=== PATIENT | female | born 1975 | race Asian ===

== ENCOUNTER → 2017-06-08 | Day surgery (SDC) | payer OTHER ==
[~2017-06-08] VITALS: Ht 156.2 cm; Wt 43.5 kg
[~2017-06-08] MED LIST: BUPIVACAINE HCL PF 0.25% 30 ML VIAL ONE; CEPH-459 PO; CHLORHEXIDINE GLUCONATE 2 % 1 PACK (2 CLOTHS) TOPICAL PRN; HYDR-3288 PO; LACTATED RINGER'S 1000 ML INJ 1,000 ML ONE; LACTATED RINGER'S 1000 ML IV PRN; LIDOCAINE HCL 2% 50 ML VIAL ONE; METOPROLOL TARTRATE 25 MG TAB PO PRN; NEOMYCIN/POLYMYXIN 1 ML G.U. IRRIGANT ONE; POVIDONE IODINE 5% (ANTISEPSIS KIT) 4 APPLICATIONS EACH NARE PRN; SODIUM CHLORID 0.9% 500 ML IV PRN; SODIUM CHLORIDE 0.9% INJ 100 ML ONE; Z.0.NO CURRENT MEDS; ceFAZolin 1,000 MG/NS 100 ML IV SCH; ceFAZolin INJ 1,000 MG VIAL ONE
[2017-06-08] MEDS: LIDOCAINE HCL 1% PF 30 ML VIAL ONE ×2 (07:11→11:36)
--- NOTE | 2017-06-08 12:34 | MP ---
cc: Venkat Rosario MD DATE OF OPERATION: 06/08/2017 DATE OF PROCEDURE: 06/08/2017 PREOPERATIVE DIAGNOSIS: Right ring finger mass. POSTOPERATIVE DIAGNOSIS: Right ring finger mass. PROCEDURE PERFORMED: Excisional biopsy. SURGEON: Ramez Rosario MD DESCRIPTION OF THE PROCEDURE: The patient was brought to the operating room, placed supine on the operating table. After the correct site and side of surgery were verified by members of each team in the room multiple times, including the patient and myself, and after adequate IV sedation had been achieved, the right upper extremity was prepped and draped in traditional sterile surgical fashion. A 50/50 mixture of 2% plain lidocaine and 0.5% plain Marcaine was infiltrated in the skin and subcutaneous tissue in the area of the mass and proximal to it. The limb was exsanguinated with an Vincent wrap. A highly placed well padded axillary tourniquet was inflated to 200 mmHg for a total of 16 minutes. A transversely oriented incision in the skin creases at the MP joint was made, carried down through the skin and subcutaneous tissue. Blunt dissection was performed. The neurovascular bundles were identified and protected, and retracted gently in opposite directions and a large redundancy consistent with a ganglion cyst was seen protruding from the distal aspect of the A1 tino. This was excised in its entirety as well as the area of the A1 tino with the defect. Minimal bipolar electrocauterization was used to cauterize the edges. Thorough irrigation was performed. The exit the flexor tendon was examined and there was no evidence of any other abnormality. The mass was passed off the field as a specimen. All of the inflammatory tissue along with it was excised as well. Thorough irrigation with saline was performed. The skin edges were reapproximated using running 5-0 nylon suture. The hand and arm were thoroughly cleansed and dried. Betadine, Adaptic dressing was applied on top of the wound followed by a bulky soft dressing. The axillary tourniquet was released. The hand and all fingers including the ring finger became immediately soft, pink and warm and had brisk capillary refill of less than 2 seconds. A circumferential dressing was applied. The patient tolerated the procedure well. MD NICOLA Ramon/GEORGINA , 12:10 PM , 12:32 PM
[2017-06-08 13:25] VITALS: BP 105/66; PULSE 67; RESP 16; TEMP 97.8; O2SAT 100
== END | disposition home or self-care (01) ==
LOC: PHSDC 09:24
PROVIDERS: ATTEND Orthopaedic Surgery Hand Surgery
DX: R22.31 Localized swelling, mass and lump, right upper limb (principal)
CPT/HCPCS: 01810; 26160; 88304; J0690; J3010; J7120; 88305